=== PATIENT | female | born 1995 | race Two or more races ===

== ENCOUNTER 2022-09-17 13:26 | Emergency (ER) | payer OTHER ==
[2022-09-17 13:56] VITALS: BP 107/73; PULSE 102; RESP 18; TEMP 98.2; BMI 30.2
== END 2022-09-17 14:50 | disposition left against medical advice (07) ==
LOC: JER 13:26
DX: R07.9 Chest pain, unspecified (principal)
CPT/HCPCS: 93005; 93010; 99283-25

== ENCOUNTER 2022-10-20 08:20 | Inpatient (IN) | payer OTHER ==
[2022-10-20] MEDS: ELECTROLYTE-148 SOLN 1,000 ML IV SCH ×3 (08:45→14:29)
[2022-10-20 09:26] VITALS: BMI 33.0
[2022-10-20 09:52] LABS: BASO % 0.4 % (0-2.0); EOS % 1.6 % (0-4.5); HEMATOCRIT 30.3 % (32.4-45.2); HEMOGLOBIN 10.2 GM/dL (10.7-15.3); LYMPH % 9.5 % (8-40); MCH 27.2 pg (25.7-33.7); MCHC 33.8 g/dl (32.0-36.0); MEAN CELL VOLUME 80.5 fl (80-96); MEAN PLT VOLUME 6.4 fl (7.5-11.1); MONO % 4.3 % (3.8-10.2); NEUT % 84.2 % (42.8-82.8); PLATELET COUNT 490 10^3/uL (134-434); RBC 3.77 M/mm3 (3.60-5.2); RDW 14.4 % (11.6-15.6); WHITE BLOOD COUNT 8.7 K/mm3 (4.0-10.0)
[2022-10-20 09:59] LABS: INR 0.99 (0.83-1.09); PROTHROMBIN TIME (PATIENT) 11.5 SEC (9.7-13.0)
[2022-10-20 10:02] LABS: ACTIVATED PTT 29.9 SECONDS (25.2-36.5)
[2022-10-20 10:26] LABS: BLOOD UREA NITROGEN 9.1 mg/dL (7-18); CALCIUM 8.8 mg/dL (8.5-10.1)
[2022-10-20] MEDS ORDERED: PROMETHAZINE HCL 25 MG/1 ML VIAL IVPB ONE (10:26)
[2022-10-20] MEDS ORDERED: BUTORPHANOL TARTRATE 1 MG/ML VIAL IVPUSH PRN (10:26)
[2022-10-20 10:30] LABS: CREATININE 0.5 mg/dL (0.55-1.3)
[2022-10-20] MEDS ORDERED: OXYTOCIN 30 UNITS in 0.9% NS 30 UNIT/500 ML INFUS.BAG IVPB SCH (10:30)
[2022-10-20] MEDS ORDERED: OXYTOCIN 30 UNITS in 0.9% NS 30 UNIT/500 ML INFUS.BAG IVPB ONE (10:35)
[2022-10-20 11:13] LABS: HIV INTERPRETATION NEGATIVE (NEGATIVE)
[2022-10-20] MEDS ORDERED: FENTANYL/BUPIVACAINE/NS/PF - PCEA - 50 ML DISP.SYRIN EP ONE ×2 (12:23→17:31)
[2022-10-20 12:41] LABS: METHADONE, UR NEGATIVE (NEGATIVE); PHENCYCLIDINE,URINE NEGATIVE (NEGATIVE); URINE BENZODIAZEPINES NEGATIVE (NEGATIVE)
[2022-10-20 12:42] LABS: COCAINE, UR NEGATIVE (NEGATIVE); OPIATES, URI NEGATIVE (NEGATIVE); URINE BARBITURATES NEGATIVE (NEGATIVE)
[2022-10-20 12:43] LABS: URINE AMPHETAMINES NEGATIVE (NEGATIVE)
[2022-10-20] MEDS ORDERED: FENTANYL CITRATE/PF 50 MCG/ML VIAL ONE (12:57)
[2022-10-20] MEDS: FENTANYL/BUPIVACAINE/NS/PF - PCEA - 50 ML DISP.SYRIN EP SCH ×2 (13:20→17:36)
[2022-10-20] MEDS ORDERED: NALOXONE HCL 0.4 MG/ML VIAL IVPUSH PRN (14:05)
[2022-10-20] MEDS ORDERED: OXYTOCIN 20 UNITS in 0.9% NS 20 UNIT/1,000 ML INFUS.BAG IV ONE (20:06)
[2022-10-20] MEDS ORDERED: WITCH HAZEL 50% (TUCKS) 40 PAD/JAR PAD TP PRN (20:29)
[2022-10-20] MEDS ORDERED: METHYLERGONOVINE MALEATE 0.2 MG/1 ML AMP IM PRN (20:29)
[2022-10-20] MEDS ORDERED: BENZOCAINE 28 GM HEMORRHOIDAL OINTMENT TP PRN (20:29)
[2022-10-20] MEDS ORDERED: BENZOCAINE 20% 57 GM BOTTLE TP PRN (20:29)
[2022-10-20] MEDS ORDERED: BISACODYL 10 MG SUPP.RECT RC PRN (20:29)
[2022-10-20] MEDS ORDERED: OXYTOCIN 20 UNITS in 0.9% NS 20 UNIT/1,000 ML INFUS.BAG IV SCH (20:30)
[2022-10-20 21:22] LABS: CORD BASE EXCESS -3.1 mmol/L (0-2); CORD HCO3 21.7 mmHg (20-29); CORD PCO2 38.2 mmHg (30-78); CORD pH 7.373 (7.14-7.44)
[2022-10-20 21:23] LABS: CORD BASE EXCESS -3.6 mmol/L (0-2); CORD HCO3 21.2 mmHg (20-29); CORD pH 7.365 (7.14-7.44)
[2022-10-20] MEDS: IBUPROFEN 600 MG TABLET (FP) PO PRN (22:00)
[2022-10-20] MEDS ORDERED: IBUPROFEN 600 MG TABLET (FP) PO ONE (22:01)
[2022-10-20] MEDS ORDERED: ACETAMINOPHEN 325 MG TABLET (FP) ONE (23:19)
[2022-10-20] MEDS: ACETAMINOPHEN 325 MG TABLET (FP) PO PRN (23:22)
[2022-10-21 08:33] LABS: BASO % 0.4 % (0-2.0); EOS % 1.5 % (0-4.5); HEMATOCRIT 26.5 % (32.4-45.2); LYMPH % 10.7 % (8-40); MCH 27.3 pg (25.7-33.7); MCHC 34.1 g/dl (32.0-36.0); MEAN CELL VOLUME 80.2 fl (80-96); MEAN PLT VOLUME 6.4 fl (7.5-11.1); MONO % 4.7 % (3.8-10.2); NEUT % 82.7 % (42.8-82.8); PLATELET COUNT 400 10^3/uL (134-434); RDW 14.3 % (11.6-15.6); WHITE BLOOD COUNT 10.2 K/mm3 (4.0-10.0)
[2022-10-21] MEDS: oxyCODONE HCL 5 MG TABLET PO PRN ×2 (11:41→20:56)
[2022-10-21] MEDS: IBUPROFEN 600 MG TABLET (FP) PO PRN (17:36)
[2022-10-21 18:44] VITALS: RESP 18
[2022-10-21] MEDS ORDERED: SENNOSIDES/DOCUSATE COMBO (SENNA PLUS) TABLET (UD) PO PRN (22:00)
[2022-10-22] MEDS: ACETAMINOPHEN 325 MG TABLET (FP) PO PRN (04:04)
[2022-10-22 09:43] VITALS: BP 104/59; PULSE 77; TEMP 97.9
== END 2022-10-22 10:43 | disposition home or self-care (01) | DRG 560 ==
LOC: JLDR 08:20 → J3W 10-21 00:31
PROVIDERS: ADMIT Obstetrics & Gynecology; ATTEND Obstetrics & Gynecology
PROC: 10E0XZZ Delivery of Products of Conception, External Approach (ICD-10-PCS; principal; 2022-10-20)
PROC: 0W8NXZZ Division of Female Perineum, External Approach (ICD-10-PCS; 2022-10-20)
PROC: 0HQ9XZZ Repair Perineum Skin, External Approach (ICD-10-PCS; 2022-10-20)
DX: O42.02 Full-term premature rupture of membranes, onset of labor within 24 hours of rupture (principal); O70.0 First degree perineal laceration during delivery; O69.81X0 Labor and delivery complicated by cord around neck, without compression, not applicable or unspecified; Z3A.37 37 weeks gestation of pregnancy; Z37.0 Single live birth
CPT/HCPCS: 36415; 36600; 59409; 80048; 80307; 82803; 85025; 85610; 85730; 86780; 86850; 86900; 86901; 87389; C9803-CS; U0003; U0005